=== PATIENT | female | born 1975 ===

== ENCOUNTER 2017-04-12 19:16 | Emergency (ER) | payer BC ==
[2017-04-12 20:07] VITALS: TEMP 98.4
[2017-04-12 20:33] VITALS: BMI 28.3
--- NOTE | 2017-04-12 20:37 | ED PDOC ---
Arrival/HPI <Delfino Junior - Last Filed: 04/12/17 21:09> - General Historian: Patient - History of Present Illness Time/Duration: Other (since this morning) Context: Home <Sherin Purdy - Last Filed: 04/14/17 12:16> - General Chief Complaint: Upper Extremity Problem/Injury Time Seen by Provider: 04/12/17 20:09 - History of Present Illness Narrative History of Present Illness (Text): 04/12/17 20:37 This 41 yo female presents to this ED c/o right shoulder pain, that radiates to right wrist since early this morning. Patient said despite pain, she went to work. However, pain was so intense, she return home. Pain is contact, but intermittent "shooting' pain. Patient feels her right arm is swollen. Patient noted returning recently from [place], last week. Denies sob, cp, neck pain , loaj, skin erythema, rash, skin punctures, trauma, or heavy lifting. (Sherin Purdy) Past Medical History - Provider Review Nursing Documentation Reviewed: Yes - Cardiac Hx Cardiac Disorders: No Other/Comment: Father has Heart Disease - Pulmonary Hx Asthma: Yes - Neurological Hx Migraine: Yes - HEENT Hx HEENT Disorder: No - Renal Other/Comment: Choleycystectomy 2004 - Endocrine/Metabolic Hx Endocrine Disorders: No - Hematological/Oncological Hx Blood Disorders: No - Integumentary Hx Dermatological Disorder: No - Musculoskeletal/Rheumatological Hx Falls: No - Gastrointestinal Hx Bowel Surgery: No - Genitourinary/Gynecological Hx Genitourinary Disorders: No - Psychiatric Hx Psychophysiologic Disorder: No Hx Substance Use: No - Surgical History Hx Cholecystectomy: Yes Hx Tonsillectomy: Yes - Anesthesia Hx Anesthesia: Yes Hx Anesthesia Reactions: Yes (SOB) Hx Malignant Hyperthermia: No <Sherin Purdy - Last Filed: 04/14/17 12:16> Family/Social History - Physician Review Nursing Documentation Reviewed: Yes Family/Social History: No Known Family HX Smoking Status: Never Smoked Hx Alcohol Use: No Hx Substance Use: No Substance used: Marijuana <Sherin Purdy - Last Filed: 04/14/17 12:16> Allergies/Home Meds <Delfino Junior - Last Filed: 04/12/17 21:09> <Sherin Purdy - Last Filed: 04/14/17 12:16> Allergies/Adverse Reactions: Allergies No Known Allergies Allergy (Unverified 04/25/14 18:09) Review of Systems - Review of Systems Constitutional: Normal. absent: Fatigue, Weight Change, Fevers Eyes: Normal ENT: Normal Respiratory: Normal Cardiovascular: Normal Gastrointestinal: Normal Genitourinary Female: Normal Musculoskeletal: Other ((+) right arm is painful, and swollen) Skin: Normal Neurological: Normal Endocrine: Normal Hemo/Lymphatic: Normal Psychiatric: Normal <PurdySherin salvador Stephanie - Last Filed: 04/14/17 12:16> Physical Exam Temperature: Afebrile Blood Pressure: Normal Pulse: Regular Respiratory Rate: Normal Appearance: Positive for: Well-Appearing, Non-Toxic, Comfortable Pain Distress: None Mental Status: Positive for: Alert and Oriented X 3 - Systems Exam Head: Present: Atraumatic, Normocephalic Pupils: Present: PERRL Extroacular Muscles: Present: EOMI Conjunctiva: Present: Normal Mouth: Present: Moist Mucous Membranes Neck: Present: Normal Range of Motion, Trachea Midline. No: Meningeal Signs, MIDLINE TENDERNESS, Paraspinal Tenderness, Lymphadenopathy Respiratory/Chest: Present: Clear to Auscultation, Good Air Exchange. No: Respiratory Distress, Accessory Muscle Use, Wheezes, Decreased Breath Sounds, Rales, Retracting, Rhonchi Cardiovascular: Present: Regular Rate and Rhythm, Normal S1, S2. No: Murmurs Upper Extremity: Present: NORMAL PULSES, Tenderness (tenderness right anterior shoulder), Neurovascularly Intact, Capillary Refill < 2s. No: Cyanosis, Edema, Normal ROM, Swelling, Erythema, Temperature Abnormalties Neurological: Present: GCS=15, CN II-XII Intact, Speech Normal, Motor Func Grossly Intact, Normal Sensory Function, Normal Cerebellar Funct, Gait Normal Skin: Present: Warm, Dry, Normal Color. No: Rashes Psychiatric: Present: Alert, Oriented x 3 <Sherin Purdy Stephanie - Last Filed: 04/14/17 12:16> Vital Signs Temp Pulse Resp BP Pulse Ox 04/12/17 21:14 84 16 111/73 100 04/12/17 20:02 98.4 F 86 18 99 Medical Decision Making <Delfino Junior - Last Filed: 04/12/17 21:09> Re-evaluation Time: 23:03 Reassessment Condition: Re-examined, Improved <Sherin Purdy - Last Filed: 04/14/17 12:16> ED Course and Treatment: 04/12/17 23:03 Re-evaluation. Patient feels better. Discussed results and plan with patient who expresses understanding. All questions answered and there is agreement with the plan to discharge home with instructions. Patient stable for discharge. Return if symptoms persist or worsen. (Sherin Purdy) - RAD Interpretation Radiology Orders: 04/12/17 20:35 SHOULDER RIGHT [RAD] Stat 04/12/17 20:36 WRIST, RIGHT 3 VIEWS [RAD] Stat 04/12/17 20:56 DUPLEX UPPER EXTRM VEIN RIGHT [US] Stat - Medication Orders Current Medication Orders: Discontinued Medications Ketorolac Tromethamine (Toradol) 15 mg IM STAT STA Stop: 04/12/17 20:38 Last Admin: 04/12/17 21:21 Dose: 15 mg Ondansetron HCl (Zofran Odt) 8 mg PO STAT STA Stop: 04/12/17 20:57 Last Admin: 04/12/17 21:21 Dose: 8 mg Oxycodone/Acetaminophen (Percocet 5/325 Mg Tab) 1 tab PO STAT STA Stop: 04/12/17 20:56 Last Admin: 04/12/17 21:21 Dose: 1 tab - PA / RESTAURANT DELIVERY DRIVER / Resident Statement MIGUEL ANGEL has reviewed & agrees with the documentation as recorded. MIGUEL ANGEL has examined the patient and agrees with the treatment plan. <Delfino Junior - Last Filed: 04/12/17 21:09> Disposition/Present on Arrival <Delfino Junior - Last Filed: 04/12/17 21:09> - Present on Arrival Any Indicators Present on Arrival: No History of DVT/PE: No History of Uncontrolled Diabetes: No Urinary Catheter: No History of Decub. Ulcer: No History Surgical Site Infection Following: None - Disposition Have Diagnosis and Disposition been Completed?: Yes Disposition Time: 23:00 Patient Plan: Discharge <Sherin Purdy - Last Filed: 04/14/17 12:16> - Disposition Diagnosis: Shoulder pain, acute Disposition: HOME/ ROUTINE Condition: GOOD Discharge Instructions (ExitCare): Shoulder Pain (ED) Additional Instructions: Call private doctor for follow up visit in 1-2 days. Take medication as instructed. Return to emergency if symptoms worsen. Call orthopedist if shoulder pain persist. Prescriptions: diaZEpam [Valium] 5 mg PO DAILY #7 tab Naproxen 500 mg PO BID PRN #14 tab PRN Reason: Pain, Severe (8-10) oxyCODONE/Acetaminophen [Percocet 5/325 mg Tab] 1 ea PO BID PRN #5 tab PRN Reason: Pain, Severe (8-10) Referrals: Dorina Schaffer MD [Primary Care Provider] - Follow up with primary Santiago Hancock MD [Staff Provider] - Follow up with primary Forms: WORK NOTE
[2017-04-12] MEDS ORDERED: Oxycodone/Acetaminophen 5/325 mg Tab PO STA (20:55)
[2017-04-12 21:14] VITALS: BP 111/73; PULSE 84; RESP 16; O2SAT 100
--- NOTE | 2017-04-13 08:38 | RAD ---
PROCEDURE: Right Wrist Radiographs. HISTORY: pain COMPARISON: None. FINDINGS: BONES: Normal. No fracture. JOINTS: Normal. No dislocation. SOFT TISSUES: Normal. OTHER FINDINGS: None. IMPRESSION: Normal right wrist radiographs.
--- NOTE | 2017-04-13 08:40 | RAD ---
PROCEDURE: Radiographs of the Right Shoulder HISTORY: pain COMPARISON: No prior. FINDINGS: BONES: Normal. No fracture. JOINTS: Normal. Glenohumeral and acromioclavicular joints preserved. No osteoarthritis. SOFT TISSUES: Normal. OTHER FINDINGS: None. IMPRESSION: Normal radiographs of the right shoulder.
--- NOTE | 2017-04-13 18:30 | US ---
PROCEDURE: Right upper extremity venous US CLINICAL HISTORY: Arm pain and swelling Evaluate for deep venous thrombosis. PHYSICIAN(S): Wisam Parrish M.D FINDINGS: The visualized rightinternal jugular vein is sonographically normal and compressible. No evidence of obstruction or thrombus is seen. The visualized segments of the right subclavian vein are patent with normal waveforms. No sonographic evidence of obstruction or thrombosis is seen. The visualized deep venous system of the proximal right upper extremity is sonographically normal and compressible. IMPRESSION: 1. No sonographic evidence for deep venous thrombosis in the visualized segments of the right upper extremity.
== END 2017-04-12 23:15 | disposition home or self-care (01) ==
LOC: ED 19:16
DX: M25.511 Pain in right shoulder (principal)
CPT/HCPCS: 73030; 73110; 81025; 93971; 96372; 99283; J1885

== ENCOUNTER 2017-06-18 17:43 | Emergency (ER) | payer BC ==
[2017-06-18 17:44] VITALS: BMI 28.3
[2017-06-18 17:53] VITALS: TEMP 98.9
--- NOTE | 2017-06-18 18:54 | ED PDOC ---
Arrival/HPI - General Chief Complaint: Back Pain Time Seen by Provider: 06/18/17 17:56 Historian: Patient - History of Present Illness Narrative History of Present Illness (Text): 06/18/17 19:28 Patient presents to the ED with history of sensation of left sided shoulder and upper chest swelling over the past 1-2 days. Patient had epidural injection from her pain management physician on 06/15/17, performed on her "c7-t1" as per her pain management with steroids and saline. Patient states that prior to procedure she was diagnosed with herniated discs in her neck that had been causing her to have intermittent severe pain down her right arm. Patient states that she had been taking pain medication without relief of this pain and was subsequently referred to a neurologist as well as pain management physician. She states after injection on 06/15 pain is not improved, but denies any NEW pain or pain down her left arm. She states that she had sensation of swelling of her left shoulder and her left upper anterior chest develop over past 2 days. Denies chest pain or pleuritic discomfort. Denies shortness of breath. Denies mid or low back pain. Denies weakness down legs. Denies difficulty swallowing. Denies incontinence of urine or stool. She denies redness or fevers. She states that she has changed bandage from needle site and there has NOT been any bleeding or pus or drainage. Past Medical History - Cardiac Hx Cardiac Disorders: No Other/Comment: Father has Heart Disease - Pulmonary Hx Respiratory Disorders: Yes Hx Asthma: Yes - Neurological Hx Neurological Disorder: Yes Hx Migraine: Yes - HEENT Hx HEENT Disorder: No - Renal Hx Renal Disorder: No - Endocrine/Metabolic Hx Endocrine Disorders: No - Hematological/Oncological Hx Blood Disorders: No - Integumentary Hx Dermatological Disorder: No - Musculoskeletal/Rheumatological Hx Musculoskeletal Disorders: Yes Hx Falls: No Hx Herniated Disk: Yes - Gastrointestinal Hx Bowel Surgery: No - Genitourinary/Gynecological Hx Genitourinary Disorders: No - Psychiatric Hx Psychophysiologic Disorder: No Hx Substance Use: No - Surgical History Hx Cholecystectomy: Yes Hx Tonsillectomy: Yes - Anesthesia Hx Anesthesia: Yes Hx Anesthesia Reactions: Yes (SOB) Hx Malignant Hyperthermia: No Family/Social History Smoking Status: Never Smoked Hx Alcohol Use: No Hx Substance Use: No Substance used: Marijuana Allergies/Home Meds Allergies/Adverse Reactions: Allergies shrimp Allergy (Verified 06/18/17 17:54) URTICARIA Home Medications: Home Meds Medication Instructions Recorded Confirmed Cyclobenzaprine [Flexeril] 5 mg PO HS 06/18/17 06/18/17 Meloxicam [Mobic] 15 mg PO HS 06/18/17 06/18/17 Oxycodone HCl/Acetaminophen 1 tab PO PRN PRN 06/18/17 06/18/17 [Percocet 7.5-325 mg Tablet] Review of Systems - Review of Systems Constitutional: absent: Fatigue, Fevers Eyes: absent: Vision Changes, Photophobia, Eye Pain ENT: absent: Hearing Changes, Sore Throat Respiratory: absent: SOB, Cough, Wheezing Cardiovascular: absent: Chest Pain, Palpitations, [place] Gastrointestinal: absent: Abdominal Pain, Nausea, Vomiting Genitourinary Female: absent: Dysuria, Frequency Musculoskeletal: Other (right arm pain, left sided swelling). absent: Back Pain Skin: Other. absent: Rash Neurological: absent: Headache, Dizziness Endocrine: absent: Polyuria Hemo/Lymphatic: absent: Easy Bleeding Physical Exam Vital Signs Reviewed: Yes Vital Signs Temp Pulse Resp BP Pulse Ox 06/18/17 21:49 90 18 111/64 98 06/18/17 17:50 98.9 F 105 H 15 115/84 94 L Temperature: Afebrile Appearance: Positive for: Uncomfortable Pain Distress: Moderate Mental Status: Positive for: Alert and Oriented X 3 - Systems Exam Head: Present: Atraumatic, Normocephalic Pupils: Present: PERRL Mouth: Present: Moist Mucous Membranes Pharnyx: No: ERYTHEMA Nose (Internal): Present: Normal Inspection Neck: Present: Paraspinal Tenderness, Other (trachea midline, mild soft tissue swelling to left trapezius/sternocleidomastoid region with no bruits or ecchymosis, no crepitus). No: MIDLINE TENDERNESS Respiratory/Chest: Present: Clear to Auscultation. No: Respiratory Distress, Decreased Breath Sounds Cardiovascular: Present: Regular Rate and Rhythm Abdomen: No: Tenderness Back: Present: Paraspinal Tenderness, Other Upper Extremity: Present: NORMAL PULSES. No: Cyanosis, Edema Lower Extremity: Present: NORMAL PULSES, Neurovascularly Intact. No: Edema, CALF TENDERNESS Neurological: Present: Other (strong grasp noted bilaterally, median/radial/ ulnar motor and sensory exam intact, full flexion and extesnion against resistance at elbow) Skin: Present: Warm Psychiatric: Present: Alert Medical Decision Making ED Course and Treatment: On exam, patient with no fever, no midline pain. Epidural site examined with no erythema, edema, pus or focal swelling. No induration. She is nontoxic appearing. She denies any new or acute weakness. Denies any new or acute pain, but states she has had chronic pain to the right shoulder and arm since April. She reports having an MRI performed over a month ago where she was diagnosed with herniated disc in her back. On exam, she has very minimal swelling noted on visual inspection of her left shoulder and chest. No crepitus or pulse deficits. No carotid bruits. CT of neck and chest to evaluate soft tissue surrounding epidural site. There is NO MIDLINE PAIN OR FEVER. No focal motor or sensory deficits. CT Neck Without Intravenous Contrast FINDINGS: Limitations: CT imaging of the neck without intravenous contrast is inherently limited. Nasopharynx: Unremarkable. Oropharynx: Unremarkable. No significant tonsillar enlargement. Hypopharynx: Unremarkable. Larynx: Unremarkable. Normal epiglottis. Trachea: Unremarkable. Retropharyngeal space: Unremarkable. Submandibular/parotid glands: Unremarkable. Thyroid: Unremarkable. No enlarged or calcified nodules. Bones/joints: Straightening of cervical lordosis. No acute fracture. No subluxation. C5-C6 mild endplate spurring. Soft tissues: Unremarkable. Vasculature: No acute findings. Lymph nodes: No lymphadenopathy. Lung apices: Unremarkable as visualized. IMPRESSION: No acute findings. Dictated and Authenticated by: Iisdro Hernandez MD 06/18/2017 7:40 PM Eastern Time ([place] & [place]) CT Chest Without Intravenous Contrast FINDINGS: Lungs: Mild right middle lobe atelectasis. Lungs otherwise clear. Pleural space: Unremarkable. No pneumothorax. No significant effusion. Heart: Heart is unremarkable. No pericardial effusion. Bones/joints: No acute fracture. No subluxation. Soft tissues: Unremarkable. Vasculature: Unremarkable. No thoracic aortic aneurysm. Lymph nodes: Unremarkable. No enlarged lymph nodes. Gallbladder and bile ducts: Gallbladder surgically absent. IMPRESSION: No acute findings. Dictated and Authenticated by: Isidro Hernandez MD 06/18/2017 7:44 PM Eastern Time ([place] & [place]) I reviewed ct findings with patient as well as limitations of these imaging studies. Mildly elevated WBC noted but patient afebrile and nontoxic appearing. THERE IS NO NEW OR ACUTE MOTOR OR SENSORY DEFICITS NOTED. I discussed with patient that epidural abscess less likely as she is afebrile, nontoxic appearing and has had no change in her pain or location of symptoms. However, I have recommended further follow-up with repeat MRI. As she is nontoxic appearing, afebrile, with no acute motor or sensory deficits or midline tenderness, she will be discharged with follow-up tomorrow morning in the ED to have reassessment and MRI performed. I discussed this with nursing tile setter supervisor to confirm availability of MRI for tomorrow. Gven leukocytosis and recent epidural, patient has been advised to follow-up tomorrow morning to have RECHECK of symptoms and REEXAM as well as MRI of cervical spine for reassessment of her pain. I have discussed case with Dr. Navin Desai, the patient's pain management physician who performed her epidural. Initial exam and treatment plan were reviewed with Dr. Desai. Again, limitations of CT imaging study were reviewed with patient, labs were reviewed as well. She will return tomorrow morning for recheck of symptoms as well as assessment to have MRI. 06/18/17 22:56 - Lab Interpretations Lab Results: 06/18/17 18:37 06/18/17 18:37 Lab Results 06/18/17 18:37: PT 10.5, INR 0.97, APTT 26.4 06/18/17 18:37: Sodium 137, Potassium 3.7, Chloride 99, Carbon Dioxide 26, Anion Gap 16, BUN 16, Creatinine 1.2, Est GFR ( Amer) > 60, Est GFR (Non- Af Amer) 50, Random Glucose 86, Calcium 8.9, Total Bilirubin 0.4, AST 21, ALT 31 , Alkaline Phosphatase 75, Total Protein 7.5, Albumin 4.3, Globulin 3.2, Albumin /Globulin Ratio 1.3 06/18/17 18:37: WBC 12.8 H, RBC 4.49, Hgb 12.9, Hct 35.8 L, MCV 79.7 L, MCH 28.7 , MCHC 36.0, RDW 14.3, Plt Count 255, MPV 9.9, Gran % 73.4 H, Lymph % (Auto) 21.0 L, [place] % (Auto) 5.0, Eos % (Auto) 0.4 L, Baso % (Auto) 0.2, Gran # 9.39 H , Lymph # 2.7, [place] # 0.6, Eos # 0.1, Baso # 0.03 - RAD Interpretation Radiology Orders: 06/18/17 18:39 CHEST W/O CONTRAST [CT] Stat NECK SOFT TISSUE W/O CONTRAST [CT] Stat - Medication Orders Current Medication Orders: Discontinued Medications Ketorolac Tromethamine (Toradol) 15 mg IVP STAT STA Stop: 06/18/17 18:45 Last Admin: 06/18/17 19:26 Dose: 15 mg Disposition/Present on Arrival - Present on Arrival Any Indicators Present on Arrival: No History of DVT/PE: No History of Uncontrolled Diabetes: No Urinary Catheter: No History of Decub. Ulcer: No History Surgical Site Infection Following: None - Disposition Have Diagnosis and Disposition been Completed?: Yes Diagnosis: Neck swelling, Neck pain Disposition: HOME/ ROUTINE Disposition Time: 21:30 Patient Plan: Discharge Condition: GOOD Additional Instructions: Continue your current pain medication as directed. For any fevers, any chest pain or shortness of breath, any headaches, any new numbness or weakness, any redness or pus or drainage, any persistent or worsening of any symptoms, get rechecked. Follow-up with your neurologist and pain management physician in 1-2 days. Return to ER TOMORROW morning June 19, 2017, to have MRI performed of neck as we discussed in ED today. Referrals: Valdez Hernandez MD [Staff Provider] - Follow up with primary Forms: [employer] (Uzbek)
[2017-06-18 19:02] LABS: BASO # 0.03 K/mm3 (0.0-2.0); BASO % 0.2 % (0.0-3.0); EOS # 0.1 (0.0-0.7); EOS % 0.4 % (1.5-5.0); GRAN # 9.39 (1.4-6.5); GRAN % 73.4 % (50.0-68.0); HEMOGLOBIN 12.9 g/dL (12.0-16.0); LYMPH # 2.7 (1.2-3.4); MEAN CELL VOLUME 79.7 fl (80.0-105.0); MEAN CORPUSCULAR HEMOGLOBIN 28.7 pg (25.0-35.0); MEAN PLATELET VOLUME 9.9 fl (7.0-11.0); MONO # 0.6 (0.1-0.6); PLATELET COUNT 255 10^3/uL (120.0-450.0); RBC 4.49 10^6/uL (3.5-6.1); RED CELL DISTRIBUTION WIDTH 14.3 % (11.5-14.5); WHITE BLOOD COUNT 12.8 10^3/ul (4.5-11.0)
[2017-06-18 19:06] LABS: INR 0.97 (0.93-1.08); PARTIAL THROMBOPLASTIN TIME 26.4 Seconds (23.7-30.8); PROTHROMBIN TIME 10.5 Seconds (9.9-11.8)
[2017-06-18 19:09] LABS: ALB/GLOB RATIO 1.3 (1.1-1.8); ALBUMIN 4.3 g/dL (3.0-4.8); ALT/SGPT 31 U/L (7-56); AST/SGOT 21 U/L (15-39); BLOOD UREA NITROGEN 16 mg/dL (7-21); CALCIUM 8.9 mg/dL (8.4-10.5); GFR AFRICAN-AMERICAN > 60; GFR NON-AFRICAN AMERICAN 50
[2017-06-18 21:50] VITALS: BP 111/64; PULSE 90; RESP 18; O2SAT 98
--- NOTE | 2017-06-19 09:08 | CT ---
PROCEDURE: CT NECK WITHOUT CONTRAST HISTORY: neck and left chest swelling after epidural COMPARISON: None. TECHNIQUE: CT of the neck without intravenous contrast. Coronal and sagittal reformats generated. Radiation dose: DLP 319.93 mGy-cm This CT exam was performed using one or more of the following dose reduction techniques: Automated exposure control, adjustment of the mA and/or kV according to patient size, and/or use of iterative reconstruction technique. FINDINGS: NASOPHARYNX: Unremarkable. SUPRAHYOID NECK: Unremarkable oropharynx, oral cavity, parapharyngeal space and retropharyngeal space. INFRAHYOID NECK: Unremarkable larynx, hypopharynx, and supraglottic space. Vocal cords intact. MASS: None. GLANDS: Parotid and submandibular glands unremarkable. Normal size thyroid gland, without nodule. LYMPH NODES: Normal. No lymphadenopathy. CERVICAL SPINE: No fracture or focal lesion. OTHER FINDINGS: None. IMPRESSION: No acute findings related to/accounting for the clinical presentation. Concordant results (preliminary interpretation) provided by [employer]. Procedure Completed: 19:03. Preliminary ([employer]) Report: Dictated and Authenticated: 19:40. Final Interpretation: 906 cm. June 19, 2017.
--- NOTE | 2017-06-19 09:13 | CT ---
PROCEDURE: CT Chest without contrast HISTORY: neck and left chest swelling after epidural COMPARISON: None. TECHNIQUE: Contiguous axial images were obtained through the chest without intravenous contrast enhancement. Sagittal and coronal reconstructions were performed. Maximum intensity projection (MIP) reconstructed images in the following planes: Axial projection only Radiation dose (DLP): 740.93 mGy-cm. This CT exam was performed using one or more of the following dose reduction techniques: Automated exposure control, adjustment of the mA and/or kV according to patient size, and/or use of iterative reconstruction technique. FINDINGS: LUNGS: Clear lungs. Visualized airway clear. MEDIASTINUM: Unremarkable thoracic aorta. No aneurysm. Normal sized heart. Main pulmonary artery unremarkable. No vascular congestion. No lymphadenopathy. PLEURA: No pleural fluid. No pneumothorax. BONES: No fracture. No destructive lesion. UPPER ABDOMEN: Grossly unremarkable. OTHER FINDINGS: None. IMPRESSION: No significant or acute findings to account for/ related to the clinical presentation. Concordant results (preliminary interpretation) provided by [employer]. Procedure Completed: 19:07. Preliminary ([facility]) Report: Dictated and Authenticated: 19:44. Final Interpretation: 09:11. June 19, 2017.
== END 2017-06-18 21:50 | disposition home or self-care (01) ==
LOC: ED 17:43
DX: M54.2 Cervicalgia (principal); R22.1 Localized swelling, mass and lump, neck
CPT/HCPCS: 70490; 71250; 80053; 85025; 85610; 85730; 96374; 99283; J1885

== ENCOUNTER 2017-06-19 07:56 | Emergency (ER) | payer BC ==
[2017-06-19 07:56] VITALS: BMI 28.3
[2017-06-19 08:09] VITALS: TEMP 99.6; O2SAT 99
--- NOTE | 2017-06-19 08:22 | ED PDOC ---
Arrival/HPI - General Chief Complaint: Back Pain Time Seen by Provider: 06/19/17 08:00 Historian: Patient - History of Present Illness Narrative History of Present Illness (Text): 06/19/17 08:10 41 year old F presents to the Emergency department for an MRI to r/u epidural abscess from injection done on 06/15/2017. Patient presented to the Emergency department last night with neck pain and sensation of swelling on left shoulder and left upper anterior chest. She states currently having new pain s/p epidural going down left arm. It was felt epidural abscess is unlikely, but was recommended for patient to return in the morning for MRI. Patient denies other complaints. Time/Duration: < week (3 days ago) Symptom Onset: Sudden Symptom Course: Unchanged Modifying Factors (Text): None Associated Symptoms (Text): new pain going down left arm Past Medical History - Provider Review Nursing Documentation Reviewed: Yes - Cardiac Hx Cardiac Disorders: No Other/Comment: Father has Heart Disease - Pulmonary Hx Respiratory Disorders: Yes Hx Asthma: Yes - Neurological Hx Neurological Disorder: Yes Hx Migraine: Yes - HEENT Hx HEENT Disorder: No - Renal Hx Renal Disorder: No - Endocrine/Metabolic Hx Endocrine Disorders: No - Hematological/Oncological Hx Blood Disorders: No - Integumentary Hx Dermatological Disorder: No - Musculoskeletal/Rheumatological Hx Musculoskeletal Disorders: Yes Hx Falls: No Hx Herniated Disk: Yes - Gastrointestinal Hx Bowel Surgery: No - Genitourinary/Gynecological Hx Genitourinary Disorders: No - Psychiatric Hx Psychophysiologic Disorder: No Hx Substance Use: No - Surgical History Hx Cholecystectomy: Yes Hx Tonsillectomy: Yes - Anesthesia Hx Anesthesia: Yes Hx Anesthesia Reactions: Yes (SOB) Hx Malignant Hyperthermia: No Family/Social History - Physician Review Nursing Documentation Reviewed: Yes Family/Social History: Other (non-contributory) Smoking Status: Never Smoked Hx Alcohol Use: No Hx Substance Use: No Substance used: Marijuana Allergies/Home Meds Allergies/Adverse Reactions: Allergies shrimp Allergy (Verified 06/19/17 08:05) URTICARIA Home Medications: Home Meds Medication Instructions Recorded Confirmed Cyclobenzaprine [Flexeril] 5 mg PO HS 06/18/17 06/19/17 Meloxicam [Mobic] 15 mg PO HS 06/18/17 06/19/17 Oxycodone HCl/Acetaminophen 1 tab PO PRN PRN 06/18/17 06/19/17 [Percocet 7.5-325 mg Tablet] Review of Systems - Review of Systems Constitutional: absent: Fevers Eyes: absent: Vision Changes Respiratory: absent: SOB Cardiovascular: Other (swelling on left upper anterior chest) Gastrointestinal: absent: Abdominal Pain Musculoskeletal: Neck Pain, Other (left sided shoulder swelling and pain down left arm s/p epidural ). absent: Back Pain Neurological: absent: Headache Physical Exam Vital Signs Reviewed: Yes Vital Signs Temp Pulse Resp BP Pulse Ox 06/19/17 08:05 99.6 F 100 H 15 110/73 99 Appearance: Positive for: Well-Appearing, Non-Toxic, Comfortable Pain Distress: None Mental Status: Positive for: Alert and Oriented X 3 - Systems Exam Head: Present: Atraumatic, Normocephalic Pupils: Present: PERRL Extroacular Muscles: Present: EOMI Conjunctiva: Present: Normal Mouth: Present: Moist Mucous Membranes Neck: Present: Normal Range of Motion. No: MIDLINE TENDERNESS Respiratory/Chest: Present: Clear to Auscultation, Good Air Exchange. No: Respiratory Distress, Accessory Muscle Use Cardiovascular: Present: Regular Rate and Rhythm, Normal S1, S2. No: Murmurs Abdomen: Present: Normal Bowel Sounds. No: Tenderness, Distention, Peritoneal Signs Upper Extremity: No: Cyanosis, Edema, Deformity Lower Extremity: No: Edema Neurological: Present: GCS=15, CN II-XII Intact, Speech Normal Skin: Present: Warm, Dry, Normal Color. No: Rashes Psychiatric: Present: Alert, Oriented x 3, Normal Insight, Normal Concentration Medical Decision Making ED Course and Treatment: 06/19/17 11:36 Pt resting quietly, no distress. I disc results w her, plan for f/u, rtr. - RAD Interpretation Radiology Orders: 06/19/17 08:24 SPINAL CANAL CERVICAL W/WO KAREEM [MRI] Stat - Medication Orders Current Medication Orders: Discontinued Medications Gadodiamide (Omniscan No Safepak) Confirm Administered Dose 4,305 mg IV .STK- MED ONE Stop: 06/19/17 09:23 Sodium Chloride (Sodium Chloride 0.9%) 1,000 mls @ 999 mls/hr IV .Q1H1M STA Stop: 06/19/17 09:42 Last Admin: 06/19/17 09:36 Dose: 999 mls/hr - Scribe Statement The provider has reviewed the documentation as recorded by the Scribe 06/19/2017 Gabby Chunga Provider Scribe Attestation: All medical record entries made by the Scribe were at my direction and personally dictated by me. I have reviewed the chart and agree that the record accurately reflects my personal performance of the history, physical exam, medical decision making, and the department course for this patient. I have also personally directed, reviewed, and agree with the discharge instructions and disposition. Disposition/Present on Arrival - Present on Arrival Any Indicators Present on Arrival: No History of DVT/PE: No History of Uncontrolled Diabetes: No Urinary Catheter: No History of Decub. Ulcer: No History Surgical Site Infection Following: None - Disposition Have Diagnosis and Disposition been Completed?: Yes Diagnosis: Neck pain Disposition: HOME/ ROUTINE Disposition Time: 11:36 Condition: STABLE Referrals: Dorina Schaffer MD [Primary Care Provider] - Follow up with primary Forms: [employer] (Polish)
[2017-06-19] MEDS ORDERED: Sodium Chloride 0.9% 1,000 ML IV STA (08:42)
[2017-06-19] MEDS ORDERED: Gadodiamide 287 MG/ML VIAL (15ML) IV ONE (09:22)
--- NOTE | 2017-06-19 10:57 | MRI ---
EXAM: MR Cervical Spine Without and With Intravenous Contrast CLINICAL HISTORY: 41 years old, female; Pain and signs and symptoms; Other: Bilateral shoulder and arm pain; Additional info: Rule out abscess region c7-t1 TECHNIQUE: Magnetic resonance images of the cervical spine without and with intravenous contrast in multiple planes. CONTRAST: 15 mL of Omniscan administered intravenously. COMPARISON: No relevant prior studies available. FINDINGS: Vertebrae: The cervical vertebral bodies are normal height and alignment.No acute fracture or dislocation is seen. The atlantoaxial articulation is normal. Marrow: There is a normal proportion of hematopoietic bone marrow and fat for this patient's age.There is no evidence of abnormal bone marrow signal intensity to suggest contusion or infection. Epidural space: There is no evidence of epidural masses, abscess or hemorrhage. Spinal cord: Unremarkable. Normal signal. No abnormal enhancement. Soft tissues: The prevertebral soft tissues appear normal. There is straightening of the cervical spine which could be secondary to positioning or muscle spasm. DISCS/SPINAL CANAL/NEURAL FORAMINA: C2-C3: Unremarkable. No significant disc disease. No stenosis. C3-C4: Unremarkable. No significant disc disease. No stenosis. C4-C5: Unremarkable. No significant disc disease. No stenosis. C5-C6: There is mild disc space narrowing at C5-6 level. The C5-6 disc also reveals a mild diffuse posterior bulge.There is no evidence of spinal canal narrowing.There is mild bilateral foraminal stenosis. C6-C7: Unremarkable. No significant disc disease. No stenosis. C7-T1: Unremarkable. No significant disc disease. No stenosis. Other findings: No abnormal contrast enhancement is seen.There is no evidence of focal fluid collections to suggest abscess formation. The visualized brain parenchyma is unremarkable. IMPRESSION: 1. There is no evidence of epidural masses, abscess or hemorrhage. 2. No abnormal contrast enhancement is seen.There is no evidence of focal fluid collections to suggest abscess formation.
[2017-06-19 11:57] VITALS: BP 122/80; PULSE 98; RESP 18
== END 2017-06-19 11:57 | disposition home or self-care (01) ==
LOC: ED 07:56
DX: M54.2 Cervicalgia (principal)
CPT/HCPCS: 72156; 96360; 99283; A9579; J7040

== ENCOUNTER 2018-03-14 17:05 | Emergency (ER) | payer BC, OTHER ==
[2018-03-14] MEDS ORDERED: Silver Sulfadiazine 1% Cream (25 gm) TP STA (17:17)
[2018-03-14 17:22] VITALS: BMI 24.9
[2018-03-14 17:25] VITALS: BP 112/53; RESP 18; TEMP 98.2; O2SAT 99
--- NOTE | 2018-03-14 17:37 | ED PDOC ---
Arrival/HPI - General Chief Complaint: Burn Time Seen by Provider: 03/14/18 17:16 Historian: Patient - History of Present Illness Narrative History of Present Illness (Text): 03/14/18 17:26 A 42 year old female, with no significant past medical history, presents to the emergency department complaining of bilateral hand weber. Patient reports she was holding plastic container of hot peanut butter sauce and burned herself. Patient attempted to relieve pain with cold water but had no relief. Patient notes no other complaints at this time. PMD: Dr. Dorina Schaffer Past Medical History - Provider Review Nursing Documentation Reviewed: Yes - Cardiac Hx Cardiac Disorders: No Other/Comment: Father has Heart Disease - Pulmonary Hx Respiratory Disorders: Yes Hx Asthma: Yes - Neurological Hx Neurological Disorder: Yes Hx Migraine: Yes - HEENT Hx HEENT Disorder: No - Renal Hx Renal Disorder: No - Endocrine/Metabolic Hx Endocrine Disorders: No - Hematological/Oncological Hx Blood Disorders: No - Integumentary Hx Dermatological Disorder: No - Musculoskeletal/Rheumatological Hx Musculoskeletal Disorders: Yes Hx Falls: No Hx Herniated Disk: Yes - Gastrointestinal Hx Bowel Surgery: No - Genitourinary/Gynecological Hx Genitourinary Disorders: No - Psychiatric Hx Psychophysiologic Disorder: No Hx Substance Use: No - Surgical History Hx Cholecystectomy: Yes Hx Tonsillectomy: Yes - Anesthesia Hx Anesthesia: Yes Hx Anesthesia Reactions: Yes (SOB) Hx Malignant Hyperthermia: No Family/Social History - Physician Review Nursing Documentation Reviewed: Yes Family/Social History: No Known Family HX Smoking Status: Never Smoked Hx Alcohol Use: No Hx Substance Use: No Substance used: Marijuana Allergies/Home Meds Allergies/Adverse Reactions: Allergies shrimp Allergy (Verified 03/14/18 17:14) URTICARIA Review of Systems - Physician Review All systems were reviewed & negative as marked: Yes - Review of Systems Constitutional: absent: Fevers Skin: Other (weber to both hands) Physical Exam Vital Signs Reviewed: Yes Vital Signs Temp Pulse Resp BP Pulse Ox 03/14/18 18:29 89 18 99 03/14/18 17:19 98.2 F 97 H 18 112/53 L 99 Temperature: Afebrile Blood Pressure: Normal Pulse: Regular Respiratory Rate: Normal Appearance: Positive for: Well-Appearing Pain Distress: None Mental Status: Positive for: Alert and Oriented X 3 - Systems Exam Head: Present: Atraumatic, Normocephalic Pupils: Present: PERRL Extroacular Muscles: Present: EOMI Conjunctiva: Present: Normal Mouth: Present: Moist Mucous Membranes Neck: Present: Normal Range of Motion Upper Extremity: Present: Other (right hand: 2% noncircumferencial; left hand: thenar eminence hypotheral) Lower Extremity: Present: Normal Inspection. No: Edema Neurological: Present: GCS=15, CN II-XII Intact, Speech Normal Skin: Present: Warm, Dry, Normal Color. No: Rashes Psychiatric: Present: Alert, Oriented x 3, Normal Insight, Normal Concentration Medical Decision Making ED Course and Treatment: 03/14/18 17:29 Impression: 42 year old female with weber to both hands. Plan: -- Motrin -- Silver Sulfadiazine 1% -- Reassess and disposition Progress Notes: - Medication Orders Current Medication Orders: Discontinued Medications Ibuprofen (Motrin Tab) 600 mg PO STAT STA Stop: 03/14/18 17:29 Last Admin: 03/14/18 17:41 Dose: Not Given Non-Admin Reason: Patient Refused Silver Sulfadiazine (Silvadene 1% 25 Gm) 0 gm TP STAT STA Stop: 03/14/18 17:18 Last Admin: 03/14/18 17:40 Dose: 25 gm Tetanus/Reduced Diphtheria/Acell Pertussis (Boostrix Vaccine Inj) 0.5 ml IM .ONCE ONE Stop: 03/14/18 18:10 Last Admin: 03/14/18 18:28 Dose: 0.5 ml Immunization Registry Document 03/14/18 18:28 [email or web address] (Rec: 03/14/18 18:28 [id number]) Immunization Registry Consent Date 03/14/18 - Scribe Statement The provider has reviewed the documentation as recorded by the Ryan Tyson Provider Scribe Attestation: All medical record entries made by the Scriberan were at my direction and personally dictated by me. I have reviewed the chart and agree that the record accurately reflects my personal performance of the history, physical exam, medical decision making, and the department course for this patient. I have also personally directed, reviewed, and agree with the discharge instructions and disposition. Disposition/Present on Arrival - Present on Arrival History of DVT/PE: No History of Uncontrolled Diabetes: No Urinary Catheter: No History of Decub. Ulcer: No History Surgical Site Infection Following: None - Disposition Diagnosis: First degree burn of hand Disposition: HOME/ ROUTINE Disposition Time: 18:29 Condition: IMPROVED Discharge Instructions (ExitCare): Skin Weber Additional Instructions: Ms Espinoza, thank you for letting us take care of you today. Your provider was Dr. Jimenez. You were treated for Hand Weber. The emergency medical care you received today was directed at your acute symptoms. If you were prescribed any medication, please fill it and take as directed. It may take several days for your symptoms to resolve. Return to the Emergency Department if your symptoms worsen, do not improve, or if you have any other problems. Make sure to call the [facility] Burn Unit at [phone] to make an appointment for follow up. Please contact your doctor or call one of the physicians/clinics you have been referred to that are listed on the Patient Visit Information form that is included in your discharge packet. Bring any paperwork you were given at discharge with you along with any medications you are taking to your follow up visit. Our treatment cannot replace ongoing medical care by a primary care provider (PCP) outside of the emergency department. Thank you for allowing the [facility] team to be part of your care today. If you had an X-Ray or CT scan: A Radiologist will review the ED reading if any change in treatment is needed we will contact you. If you had a blood, urine, or wound culture: It will take several days for the results, if any change in treatment is needed we will contact you. If you had an STI test: It will take 48 hours for the results. Please call after 1 week if you have not heard back. Prescriptions: Bacitracin OINT 1 applic TP TID #1 tube Referrals: Dorina Schaffer MD [Primary Care Provider] - Follow up with primary Forms: [employer] (Macedonian), WORK NOTE
[2018-03-14] MEDS ORDERED: TDAP Vaccine 0.5 mL Syr IM ONE (18:09)
[2018-03-14 18:29] VITALS: PULSE 89
== END 2018-03-14 18:29 | disposition home or self-care (01) ==
LOC: ED 17:05
DX: T23.102A Burn of first degree of left hand, unspecified site, initial encounter (principal); T23.101A Burn of first degree of right hand, unspecified site, initial encounter; X19.XXXA Contact with other heat and hot substances, initial encounter; Y92.9 Unspecified place or not applicable; Z23 Encounter for immunization